=== PATIENT | female | born 1935 | race Caucasian/White ===

== ENCOUNTER 2016-10-25 11:35 | Emergency (ER) | payer MEDICARE, OTHER ==
[~2016-10-25 11:35] MED LIST: CELEBREX200 MG PO; COLACE100 MG PO; CYANOCOBAL1000 MCG/M INJ; DIFLUCAN100 MG PO; DULCOLAX5 MG PO; HYDROCODON-ACE1 EAC6 PO; HYDROXYZINE HCL10 MG PO; KLOR-CON-1010 MEQ PO; MELATONIN3 MG PO; MIRTAZAPINE15 MG PO; OMEPRAZOLE20 MG PO; SINEMET 25-1001 EACH PO; SYNTHROID50 MCG PO; SYSTANE 0.3-0.1 EACH OU; ZOFRAN4 MG PO
[2016-11-04] MEDS ORDERED: NORCO 10-325 T1 EACH PO (10:29)
[2016-11-04] MEDS ORDERED: FIBERSOURCE HN250 ML GT (10:31)
[2016-11-04] MEDS ORDERED: WATER GT (10:32)
[2016-11-04] MEDS ORDERED: MELATONIN3 MG PO (10:32)
[2016-11-04] MEDS ORDERED: SYNTHROID75 MCG PO (10:32)
[2016-11-04] MEDS ORDERED: SINEMET 25-1001 EACH PO (10:32)
[2016-11-04] MEDS ORDERED: HYDROXYZINE HCL10 MG PO (10:33)
[2016-11-04] MEDS ORDERED: OMEPRAZOLE20 MG PO (10:33)
[2016-11-04] MEDS ORDERED: KLOR-CON-1010 MEQ PO (10:34)
[2016-11-04] MEDS ORDERED: LUBRICATING PL1 EACH OU (10:34)
[2016-11-04] MEDS ORDERED: ACETAMINOPHEN325 MG PO (10:35)
[2016-11-04] MEDS ORDERED: NICOTINE PATCH1 EAC5 TD (10:35)
[2016-11-04] MEDS ORDERED: SEROQUEL25 MG PO (10:36)
[2016-11-04] MEDS ORDERED: LACTULOSE20 GM/30 M PO (10:36)
[2016-11-04] MEDS ORDERED: COLACE100 MG PO (10:36)
[2016-11-04] MEDS ORDERED: DIGOX125 MCG PO (10:36)
[2016-11-04] MEDS ORDERED: CARDIZEM CD240 MG PO (10:37)
[2016-11-04] MEDS ORDERED: BROVANA15 MCG/2 M NEB (10:38)
[2016-11-04] MEDS ORDERED: ASPIR 8181 MG PO (10:38)
[2016-11-04] MEDS ORDERED: METOPROLOL TART25 MG PO (10:38)
[2016-11-04] MEDS ORDERED: IPRAT-ALBUT 0.5-3 ML NEB (10:38)
[2016-11-04] MEDS ORDERED: PULMICORT0.5 MG/2 M NEB (10:39)
== END 2016-10-25 15:56 | disposition critical access hospital (66) ==
LOC: ER 11:35
DX: I48.91 Unspecified atrial fibrillation (principal); J90 Pleural effusion, not elsewhere classified; K21.9 Gastro-esophageal reflux disease without esophagitis; E11.9 Type 2 diabetes mellitus without complications; I10 Essential (primary) hypertension; E03.9 Hypothyroidism, unspecified; F17.210 Nicotine dependence, cigarettes, uncomplicated; Z90.49 Acquired absence of other specified parts of digestive tract; Z96.641 Presence of right artificial hip joint; Z79.82 Long term (current) use of aspirin; Z79.899 Other long term (current) drug therapy; Z88.0 Allergy status to penicillin; Z88.1 Allergy status to other antibiotic agents; Z88.8 Allergy status to other drugs, medicaments and biological substances
CPT/HCPCS: 36415; 51701; 96374; 96375; 96376

== ENCOUNTER 2016-10-25 11:35 | Inpatient (IN) | payer MEDICARE, OTHER ==
--- NOTE | 2016-10-26 14:53 | NUR ---
TYLENOL 650MG SUPP GIVEN FOR TEMP 101.4 RECTUM.
--- NOTE | 2016-10-27 22:15 | NUR ---
Assessment as noted. Patient confused but will follow simple commands. Patient a bit restless otherwise hemodynamically stable.
--- NOTE | 2016-10-28 00:37 | NUR ---
Midnight assessment unchanged from initial assessment. Will continue to monitor.
--- NOTE | 2016-10-28 06:39 | NUR ---
AT @ 0430 patient became very anxious, noted she could not breath, I/E wheezing, wet per auscultation. Pulled patient up in bed, HOB elevated even more. O2 per N/C at 5L, RT called to give her a treatment which she came and performed, called Dr. Stahl to inform him of assessment. He ordered Lasix 20 mg IV now which I gave. AT 0530 patient calmer, moving air better, minimal wheezing noted. UOP has picked up will continue to monitor.
--- NOTE | 2016-10-30 02:53 | NUR ---
0245 AWAKE AND UNABLE TO SLEEP AT THIS TIME. RESTORIL PO GIVEN LAST NIGHT 10-29-16. PT HAD A RESTFUL NIGHT LAST PM WITH THE SAME MEDS GIVEN TONIGHT.
--- NOTE | 2016-10-31 13:41 | NUR ---
1330: REPORT TO MEHREEN MEYER; PT TRANSFERRED TO 318 PER AIRBED ON O2/TELE. VSS. PT/FAMILY AGREEABLE/ VERB. UNDERSTANDING.
[2016-11-04] MEDS ORDERED: NORCO 10-325 T1 EACH PO (10:29)
[2016-11-04] MEDS ORDERED: FIBERSOURCE HN250 ML GT (10:31)
[2016-11-04] MEDS ORDERED: SYNTHROID75 MCG PO (10:32)
[2016-11-04] MEDS ORDERED: WATER GT (10:32)
[2016-11-04] MEDS ORDERED: SINEMET 25-1001 EACH PO (10:32)
[2016-11-04] MEDS ORDERED: MELATONIN3 MG PO (10:32)
[2016-11-04] MEDS ORDERED: HYDROXYZINE HCL10 MG PO (10:33)
[2016-11-04] MEDS ORDERED: OMEPRAZOLE20 MG PO (10:33)
[2016-11-04] MEDS ORDERED: KLOR-CON-1010 MEQ PO (10:34)
[2016-11-04] MEDS ORDERED: LUBRICATING PL1 EACH OU (10:34)
[2016-11-04] MEDS ORDERED: ACETAMINOPHEN325 MG PO (10:35)
[2016-11-04] MEDS ORDERED: NICOTINE PATCH1 EAC5 TD (10:35)
[2016-11-04] MEDS ORDERED: LACTULOSE20 GM/30 M PO (10:36)
[2016-11-04] MEDS ORDERED: DIGOX125 MCG PO (10:36)
[2016-11-04] MEDS ORDERED: SEROQUEL25 MG PO (10:36)
[2016-11-04] MEDS ORDERED: COLACE100 MG PO (10:36)
[2016-11-04] MEDS ORDERED: CARDIZEM CD240 MG PO (10:37)
[2016-11-04] MEDS ORDERED: IPRAT-ALBUT 0.5-3 ML NEB (10:38)
[2016-11-04] MEDS ORDERED: BROVANA15 MCG/2 M NEB (10:38)
[2016-11-04] MEDS ORDERED: ASPIR 8181 MG PO (10:38)
[2016-11-04] MEDS ORDERED: METOPROLOL TART25 MG PO (10:38)
[2016-11-04] MEDS ORDERED: PULMICORT0.5 MG/2 M NEB (10:39)
== END 2016-11-02 13:43 | DRG 308 ==
LOC: ER 11:35 → ICU 15:57 → MED 10-31 13:42
PROVIDERS: ADMIT Internal Medicine
PROC: 0D20XUZ Change Feeding Device in Upper Intestinal Tract, External Approach (ICD-10-PCS; principal; 2016-10-28)
DX: I48.91 Unspecified atrial fibrillation (principal); J18.9 Pneumonia, unspecified organism; I50.33 Acute on chronic diastolic (congestive) heart failure; E43 Unspecified severe protein-calorie malnutrition; J44.0 Chronic obstructive pulmonary disease with (acute) lower respiratory infection; F05 Delirium due to known physiological condition; Z68.1 Body mass index [BMI] 19.9 or less, adult; I11.0 Hypertensive heart disease with heart failure; E11.9 Type 2 diabetes mellitus without complications; G20 Parkinson's disease; F02.80 Dementia in other diseases classified elsewhere, unspecified severity, without behavioral disturbance, psychotic disturbance, mood disturbance, and anxiety; E78.00 Pure hypercholesterolemia, unspecified; F41.9 Anxiety disorder, unspecified; F32.9 Major depressive disorder, single episode, unspecified; Z86.718 Personal history of other venous thrombosis and embolism; M06.9 Rheumatoid arthritis, unspecified; K21.9 Gastro-esophageal reflux disease without esophagitis; E03.9 Hypothyroidism, unspecified; Z85.3 Personal history of malignant neoplasm of breast; Z90.11 Acquired absence of right breast and nipple; Z96.659 Presence of unspecified artificial knee joint; Z90.49 Acquired absence of other specified parts of digestive tract; Z79.4 Long term (current) use of insulin; Z79.899 Other long term (current) drug therapy; Z88.1 Allergy status to other antibiotic agents; Z88.0 Allergy status to penicillin; Z88.8 Allergy status to other drugs, medicaments and biological substances; Z66 Do not resuscitate; F17.210 Nicotine dependence, cigarettes, uncomplicated; Y95 Nosocomial condition; K59.00 Constipation, unspecified; D53.9 Nutritional anemia, unspecified
CPT/HCPCS: 36415; 87502; 93306; 97162-GP; 97166; J0456; J1160; J1650; J1940; J2550; J3370; J7050